=== PATIENT | female | born 1970 | race Caucasian/White ===

== ENCOUNTER 2018-05-04 20:54 | Observation (INO) | payer OTHER ==
--- NOTE | 2018-05-04 21:13 | PDOC ---
Rapid Medical Evaluation Chief Complaint: Blood Pressure Problem Time Seen by Provider: 05/04/18 21:06 Medical Evaluation: 05/04/18 21:07 You I have performed a brief in-person evaluation of this patient. The patient presents with a chief complaint of: problems left arm pain that has radiated from shoulder with intermittant CP, Pertinent physical exam findings: tearful and admits to nervousness. I have ordered the following: Ekg The patient will proceed to the ED for further evaluation.
[2018-05-04 21:14] VITALS: BMI 29.7
--- NOTE | 2018-05-04 21:49 | PDOC ---
History of Present Illness - General History Source: Patient Exam Limitations: No Limitations - History of Present Illness Initial Comments: 05/04/18 21:58 The patient is a 47 year old female, with a significant past medical history of hypertension and hypothyroidism, who presents to the emergency department with left arm pain for several days. The patient reports her pain is a sharp and radiates up her arm into her shoulder, neck, and upper back. She reports her pain is exacerbated with arm movement, and denies any heavy lifting or trauma. She reports associated intermittent chest pain, but denies any shortness of breath, diaphoresis, or palpitations. Patient reports she noted increased lower extremity swelling earlier today and reports a headache with blurry vision, but denies any dizziness or lightheadedness. Patient reports monitoring her bp at home and states it was in 150s/90s. Patient reports increased urinary frequency and slight brown discharge, but denies any dysuria or hematuria. Patient states her LMP was 04/03/18, but has not gotten her period this month. She reports intermittent nausea, but denies any sour taste in mouth, abdominal pain, vomiting, diarrhea, or constipation. She denies any recent travel or sick contacts. In the past, patient reports hip, knee, and shoulder pain, which typically resolved on their own, and states she has no history of rheumatologic conditions. Allergies: NKDA Past Surgical History: None reported Social History: Non smoker. No ETOH or recreational drug use. Family History: Mother(diabetes, hypertension, CHF) PCP: Dr. Muhammad <Genesis Jason - Last Filed: 05/04/18 22:13> <Nivia Shrap - Last Filed: 05/04/18 23:42> - General Chief Complaint: Blood Pressure Problem Stated Complaint: LT ARM PAIN Time Seen by Provider: 05/04/18 21:06 Past History <Genesis Jason - Last Filed: 05/04/18 22:13> - Past Medical History COPD: No - Suicide/Smoking/Psychosocial Hx Smoking History: Never smoked Hx Alcohol Use: No Drug/Substance Use Hx: No Substance Use Type: None <Nivia Sharp - Last Filed: 05/04/18 23:42> - Past Medical History Allergies/Adverse Reactions: Allergies Allergy/AdvReac Type Severity Reaction Status Date / Time No Known Allergies Allergy Verified 05/04/18 21:08 Home Medications: Ambulatory Orders Amlodipine Besylate [Norvasc -] 10 mg PO DAILY 05/04/18 Enalapril Maleate [Vasotec -] 10 mg PO DAILY 05/04/18 Review of Systems - Review of Systems Able to Perform ROS?: Yes Comments:: 05/04/18 21:58 GENERAL/CONSTITUTIONAL: No fever or chills. No weakness. HEAD, EYES, EARS, NOSE AND THROAT: +Blurry vision. No ear pain or discharge. No sore throat. GASTROINTESTINAL: +Nausea. No abdominal pain, vomiting, diarrhea or constipation. GENITOURINARY: +Frequency, brown vaginal discharge. No dysuria, hematuria or change in urination. CARDIOVASCULAR: +Chest pain. No shortness of breath. RESPIRATORY: No cough, wheezing, or hemoptysis. MUSCULOSKELETAL: +Left arm pain radiating to shoulder, neck, and upper back. + Joint pains. No joint or muscle swelling. SKIN: No rash NEUROLOGIC: +Headache. No vertigo, loss of consciousness, or change in strength/ sensation. ENDOCRINE: No increased thirst. No abnormal weight change. HEMATOLOGIC/LYMPHATIC: No anemia, easy bleeding, or history of blood clots. ALLERGIC/IMMUNOLOGIC: No hives or skin allergy. <Genesis Jason - Last Filed: 05/04/18 22:13> *Physical Exam - Vital Signs Last Vital Signs Temp Pulse Resp BP Pulse Ox 98.7 F 115 H 20 225/96 97 05/04/18 21:08 05/04/18 21:08 05/04/18 21:08 05/04/18 21:08 05/04/18 21:08 - Physical Exam Comments: 05/04/18 21:59 Constitutional: Awake, alert, oriented. No acute distress. Head: Normocephalic. Atraumatic Eyes: PERRL. EOMI. Conjunctivae are not pale. ENT: Mucous membranes are moist and intact. Posterior pharynx without exudates or erythema. Uvula midline. Neck: Supple. Full ROM. No lymphadenopathy. Cardiovascular: Tachycardic. Regular rhythm. S1, S2 regular. Distal pulses are 2+ and symmetric. Pulmonary/Chest: No evidence of respiratory distress. Clear to auscultation bilaterally No wheezing, rales or rhonchi. Abdominal: Soft and non-distended. There is no tenderness. No rebound, guarding or rigidity. No organomegaly. No palpable masses. Good bowel sounds. Back: Tender at left cervical/paraspinal region. No midline tenderness. No bony crepitus, step-offs, or deformities. No CVA tenderness. Musculoskeletal: Anterior left shoulder tenderness over the bicep tendon insertion of left arm, but otherwise full range of motion. No edema. No cyanosis. No clubbing. Full range of motion in all extremities. No calf tenderness. Radial/pedal pulses are intact and 2+ bilaterally Skin: Skin is warm and dry. No petechiae. No purpura. Neurological: Alert and oriented to person, place, and time. Cranial nerves II -XII are grossly intact. Normal speech. Strength is grossly symmetric. 5/5 muscle strength. No sensory deficits. Psychiatric: Good eye contact. Normal interaction, affect and behavior. <Genesis Jason - Last Filed: 05/04/18 22:13> - Vital Signs Last Vital Signs Temp Pulse Resp BP Pulse Ox 98.7 F 115 H 20 225/96 97 05/04/18 21:08 05/04/18 21:08 05/04/18 21:08 05/04/18 21:08 05/04/18 21:08 <Nivia Sharp - Last Filed: 05/04/18 23:42> Heart Score/ECG Review - ECG Intrepretation Comment:: 05/04/18 23:31 sinus tach at 101 w 1st degree av block, mild st depression with t wave inversion sv2-3, abnl ekg <Nivia Sharp - Last Filed: 05/04/18 23:42> ED Treatment Course - LABORATORY CBC & Chemistry Diagram: 05/04/18 22:01 05/04/18 22:01 <Genesis Jason - Last Filed: 05/04/18 22:13> - LABORATORY CBC & Chemistry Diagram: 05/04/18 22:01 05/04/18 22:01 - RADIOLOGY Radiology Studies Ordered: Category Date Time Status CHEST X-RAY PORTABLE* [RAD] Stat Radiology 05/04/18 21:46 Ordered <Nivia Sharp - Last Filed: 05/04/18 23:42> Medical Decision Making - Medical Decision Making 05/04/18 21:47 a/p: 47yo female with hx of HTN and Hypothyroid presents c/o intermittent L chest/arm pain, diffuse joint pain and elevated bp -intermittent episodes of cp with radiation down L arm x few days -no assoc sob -sometimes assoc nausea -fam hx of cad/htn/dm/chf -no v/d -head pressure -on synthroid -on norvasc and enalapril (noncompliant with enalapril) -will check labs, trop, ekg, cxr -given joint pain - will add esr/crp 05/04/18 23:38 pt states intermittent episodes of L upper chest pain that radiates to shoulder trop negative, but t wave inversions on ekg - will keep in obs and place consult to cards microblog sent to [facility] for obs 05/04/18 23:42 case discussed with [facility] - accepts pt to obs tele <Nivia Sharp - Last Filed: 05/04/18 23:42> *DC/Admit/Observation/Transfer - Attestations Scribe Attestion: 05/04/18 21:59 Documentation prepared by Genesis Jason, acting as nurses medical assistants phlebotomists for Nivia Sharp DO. <Genesis Jason - Last Filed: 05/04/18 22:13> - Discharge Dispostion Decision to Admit order: Yes - Attestations Physician Attestion: 05/04/18 23:39 I, Dr. Nivia Sharp DO, attest that this document has been prepared under my direction and personally reviewed by me in its entirety. I further attest, that it accurately reflects all work, treatment, procedures and medical decision -making performed by me. <Nivia Sharp - Last Filed: 05/04/18 23:42> Diagnosis at time of Disposition: Chest pain - Discharge Dispostion Condition at time of disposition: Fair - Referrals Referrals: Andrew Muhammad [Primary Care Provider] -
[2018-05-04 22:30] LABS: URINE APPEARANCE CLEAR; URINE BILIRUBIN NEGATIVE (<2.0 mg/dL); URINE COLOR STRAW; URINE GLUCOSE (UA) NEGATIVE (NEGATIVE); URINE KETONE NEGATIVE (NEGATIVE); URINE LEUK ESTERASE NEGATIVE (NEGATIVE); URINE NITRITE NEGATIVE (NEGATIVE); URINE PROTEIN NEGATIVE (NEGATIVE); URINE UROBILINOGEN NEGATIVE mg/dL (0.2-1.0)
[2018-05-04 22:32] LABS: EOS % 3.1 % (0-4.5); LYMPH % 25.3 % (8-40); MCHC 32.6 g/dl (32.0-36.0); MEAN CELL VOLUME 79.7 fl (80-96); MEAN PLT VOLUME 8.8 fl (7.5-11.1); MONO % 8.5 % (3.8-10.2); NEUT % 62.1 % (42.8-82.8); PLATELET COUNT 289 K/MM3 (134-434); RBC 5.02 M/mm3 (3.60-5.2); RDW 14.5 % (11.6-15.6); WHITE BLOOD COUNT 8.1 K/mm3 (4.0-10.0)
[2018-05-04 22:53] LABS: ALBUMIN 3.9 g/dl (3.4-5.0); ANION GAP 9 (8-16); BLOOD UREA NITROGEN 11 mg/dL (7-18); CALCIUM 8.8 mg/dL (8.5-10.1); CHLORIDE 102 mmol/L (98-107); CO2 28 mmol/L (21-32); GLUCOSE,RANDOM 104 mg/dL (74-106); POTASSIUM 3.7 mmol/L (3.5-5.1); SODIUM 139 mmol/L (136-145)
[2018-05-04 23:06] LABS: ALK PHOS 87 U/L (45-117); BILIRUBIN,TOTAL 0.3 mg/dL (0.2-1.0); CREATININE 0.8 mg/dL (0.55-1.02); SGOT/AST 14 U/L (15-37); SGPT/ALT 24 U/L (12-78); TOT PROT 8.2 g/dl (6.4-8.2)
[2018-05-04] MEDS ORDERED: ASPIRIN 81 MG CHEWABLE TABLETS PO ONE (23:32)
[2018-05-04] MEDS ORDERED: ASPIRIN 325 MG TABLET ONE (23:49)
--- NOTE | 2018-05-04 23:51 | PN ---
Teaching Attending Note Name of Resident: Andrea Vazquez ATTENDING PHYSICIAN STATEMENT I saw and evaluated the patient. I reviewed the resident's note and discussed the case with the resident. I agree with the resident's findings and plan as documented. SUBJECTIVE: Patient is a 47 year old woman past medical history of hypertension and hypothyroidism, who presents to the emergency department with left arm pain, shoulder pain and chest pain for three days. The patient reports her pain is a sharp and radiates up her arm into her shoulder, neck, and upper back. She reports her pain is exacerbated with arm movement, and denies any heavy lifting or trauma. She reports associated intermittent chest pain, but denies any shortness of breath, diaphoresis, or palpitations. Patient reports she noted increased lower extremity swelling earlier today and reports a headache with blurry vision, but denies any dizziness or lightheadedness. Patient reports increased urinary frequency and slight brown discharge, but denies any dysuria or hematuria. Patient states her LMP was 04/03/18, but has not gotten her period this month. She reports intermittent nausea, has history of frozen right shoulder, and left knee pain. OBJECTIVE: Alert and in no acute respiratory distress Vital Signs Period Temp Pulse Resp BP Sys/[place] Pulse Ox Last 24 Hr 98.7 F 92-115 18-20 149-225/81-96 97-98 HEENT: No Jaundice, eye redness or discharge, PERRLA, EOMI. Normocephalic, atraumatic. External ears are normal and hearing is grossly intact. No nasal discharge. Neck: Supple, nontender. No palpable adenopathy or thyromegaly. No JVD Chest: Good effort. Clear to auscultation and percussion. Heart: Regular. No S3, rub or murmur Abdomen: Not distended, soft, nontender and no HSM. No rebound or guarding. Normoactive bowel sounds. Ext: Peripheral pulses intact. Limited ROM of left shoulder; leg edema. Skin: Warm and dry. No petechiae, rash or ecchymosis. Neuro: Alert. Oriented x3. CN 2-12 grossly intact. Sensation grossly intact in all four extremities and DTR are symmetric. Home Medications Medication Instructions Recorded Amlodipine Besylate [Norvasc -] 10 mg PO DAILY 05/04/18 Enalapril Maleate [Vasotec -] 10 mg PO DAILY 05/04/18 Abnormal Lab Results 05/04/18 05/04/18 05/04/18 22:01 22:01 22:01 MCV 79.7 L ESR 58 H AST 14 L C-Reactive Protein 0.9 H ASSESSMENT AND PLAN: 1. Atypical chest pain - EKG shows nonspecific T wave changes with normal troponin. Will admit to Telemetry to rule out ACS, get ECHO and consult cardiology. 2. Shoulder pain and arm pain - Will get CT of her left shoulder and MRI of C spine to rule out cervical radiculopathy. Do serum test first. 3. Polyarticular joint pain - Will get MOOKIE and autoimmune disease panel. 4. Uncontrolled hypertension - Restart home medications and strive for normotension. 5. DVT prophylaxis - Heparin 5000u sq tid 6. Advance directives - Full code
--- NOTE | 2018-05-05 02:51 | HP ---
CHIEF COMPLAINT: Left arm, back neck and chest pain PCP: Dr. Muhammad HISTORY OF PRESENT ILLNESS: The patient is a 47 yo f w/ PMH HTN, Hypothyroidism who comes into the ED c/o a 1 week history left arm pain. The patient describes a sharp pain which originates in her left shoulder and radiates ti her left bicep as well as the left side of her chest, neck and back. The patient states that the pain get worse on movement of the arm and at night when resting. Pain alleviated by NSAIDs. Patient denies numbness, tingling, but does endorse weakness and "heaviness" in the affected limb. The patient has a history of right sided frozen shoulder, left sided knee pain for the last 5 months as well as b/l hip pain several years ago which has since resolved. This pain is associated with headache and feelings of a heavy head as well as b/l LE swelling and nausea. Patient states that her BP at home has been in the "150's over 90's" by wrist cuff. Patient was recently started on vasotec, but has not taken it in the the last 3 days because it "causes her shoulders to hurt worse" The patient is also complaining of increased urinary frequency without dysuria. Patient denies SOB, diaphoresis, palpitations, abdominal pain, changes in bowel habits. ER course was notable for: (1) normal labs, UA negative w/ normal specific gravity (2) ESR 58, CRP .9, troponin negative x1 (3) Upreg negative (4) EKG showing sinus tachy w/ t wave inversions in V2 and V as well as a 1st degree AV block Recent Travel: none PAST MEDICAL HISTORY: HTN diagnosed in 1991 while Hyperthyroidism diagnosed in 2001 s/p radioablation and resulting hypothyroidism PAST SURGICAL HISTORY: none Social History: Smoking: never smoker Alcohol: denies Drugs: denies Patient currently unemployed, lives at home w/ 3 children Family History: Mother w/ Hx DM, HTN and CHF Son with asthma Allergies No Known Allergies Allergy (Verified 05/04/18 21:08) HOME MEDICATIONS: Home Medications Medication Instructions Recorded Amlodipine Besylate [Norvasc -] 10 mg PO DAILY 05/04/18 Enalapril Maleate [Vasotec -] 10 mg PO DAILY 05/04/18 REVIEW OF SYSTEMS CONSTITUTIONAL: Absent: fever, chills, diaphoresis, generalized weakness, malaise, loss of appetite, weight change HEENT: Absent: rhinorrhea, nasal congestion, throat pain, throat swelling, difficulty swallowing, mouth swelling, ear pain, eye pain, visual changes CARDIOVASCULAR: Absent: syncope, palpitations, irregular heart rate, lightheadedness, peripheral edema RESPIRATORY: Absent: cough, shortness of breath, dyspnea with exertion, orthopnea, wheezing, stridor, hemoptysis GASTROINTESTINAL: Absent: abdominal pain, abdominal distension, vomiting, diarrhea, constipation, melena, hematochezia GENITOURINARY: Absent: dysuria, urgency, hesitancy, hematuria, flank pain, genital pain MUSCULOSKELETAL: Absent: myalgia, joint swelling, back pain SKIN: Absent: rash, itching, pallor HEMATOLOGIC/IMMUNOLOGIC: Absent: easy bleeding, easy bruising, lymphadenopathy, frequent infections ENDOCRINE: Absent: unexplained weight gain, unexplained weight loss, heat intolerance, cold intolerance NEUROLOGIC: Absent: focal paresthesias, dizziness, unsteady gait, seizure, mental status changes, bladder or bowel incontinence PSYCHIATRIC: Absent: anxiety, depression, suicidal or homicidal ideation, hallucinations. PHYSICAL EXAMINATION Vital Signs - 24 hr 05/04/18 05/04/18 05/04/18 21:08 22:00 22:04 Temperature 98.7 F Pulse Rate 115 H Pulse Rate [ 94 H Left Radial] Pulse Rate [ 92 H Right Radial] Respiratory 20 18 18 Rate Blood Pressure 225/96 Blood Pressure 151/84 [Left Arm] Blood Pressure 149/81 [Right Arm] O2 Sat by Pulse 97 98 98 Oximetry (%) 05/05/18 01:30 Temperature 98 F Pulse Rate 85 Pulse Rate [ Left Radial] Pulse Rate [ Right Radial] Respiratory 18 Rate Blood Pressure 158/94 Blood Pressure [Left Arm] Blood Pressure [Right Arm] O2 Sat by Pulse 98 Oximetry (%) GENERAL: Awake, alert, and fully oriented, in no acute distress. HEAD: Normal with no signs of trauma. EYES: Pupils equal, round and reactive to light, extraocular movements intact, sclera anicteric, conjunctiva clear. No lid lag. EARS, NOSE, THROAT: oropharynx clear without exudates. Moist mucous membranes. NECK: Normal range of motion, supple without lymphadenopathy, JVD, or masses. LUNGS: Breath sounds equal, clear to auscultation bilaterally. No wheezes, and no crackles. No accessory muscle use. HEART: Regular rate and rhythm, normal S1 and S2 without murmur, rub or gallop. ABDOMEN: Soft, nontender, not distended, normoactive bowel sounds, no guarding, no rebound, no masses. No hepatomegaly or splenomegaly. MUSCULOSKELETAL: Normal range of motion at all joints. No bony deformities or tenderness. No CVA tenderness. UPPER EXTREMITIES: 2+ pulses, warm, well-perfused. No cyanosis. No clubbing. No peripheral edema. LOWER EXTREMITIES: 2+ pulses, warm, well-perfused. No calf tenderness. 1+ peripheral edema. NEUROLOGICAL: Cranial nerves II-XII intact. Normal speech. Normal gait. Strength 5/5 in all four limbs. Sensation intact b/l PSYCHIATRIC: Cooperative. Good eye contact. Appropriate mood. Flat affect. SKIN: Warm, dry, normal turgor, no rashes or lesions noted, normal capillary refill. Laboratory Results - last 24 hr 05/04/18 05/04/18 05/04/18 22: 22:01 22:01 WBC 8.1 RBC 5.02 Hgb 13.0 Hct 40.0 MCV 79.7 L MCH 26.0 MCHC 32.6 RDW 14.5 Plt Count 289 MPV 8.8 Absolute Neuts (auto) 5.0 Neutrophils % 62.1 Lymphocytes % 25.3 Monocytes % 8.5 Eosinophils % 3.1 Basophils % 1.0 Nucleated RBC % 0 ESR 58 H Sodium 139 Potassium 3.7 Chloride 102 Carbon Dioxide 28 Anion Gap 9 BUN 11 Creatinine 0.8 Creat Clearance w eGFR > 60 Random Glucose 104 Calcium 8.8 Magnesium Total Bilirubin 0.3 AST 14 L ALT 24 Alkaline Phosphatase 87 Creatine Kinase 71 Troponin I < 0.02 C-Reactive Protein 0.9 H B-Natriuretic Peptide Total Protein 8.2 Albumin 3.9 TSH 3.54 Urine Color Urine Appearance Urine pH Ur Specific Novelty Urine Protein Urine Glucose (UA) Urine Ketones Urine Blood Urine Nitrite Urine Bilirubin Urine Urobilinogen Ur Leukocyte Esterase Urine HCG, Qual 05/04/18 05/04/18 05/04/18 22:01 22:01 22:01 WBC RBC Hgb Hct MCV MCH MCHC RDW Plt Count MPV Absolute Neuts (auto) Neutrophils % Lymphocytes % Monocytes % Eosinophils % Basophils % Nucleated RBC % ESR Sodium Potassium Chloride Carbon Dioxide Anion Gap BUN Creatinine Creat Clearance w eGFR Random Glucose Calcium Magnesium 2.2 Total Bilirubin AST ALT Alkaline Phosphatase Creatine Kinase Troponin I C-Reactive Protein B-Natriuretic Peptide Total Protein Albumin TSH Urine Color Straw Urine Appearance Clear Urine pH 8.0 Ur Specific Novelty 1.008 Urine Protein Negative Urine Glucose (UA) Negative Urine Ketones Negative Urine Blood Negative Urine Nitrite Negative Urine Bilirubin Negative Urine Urobilinogen Negative Ur Leukocyte Esterase Negative Urine HCG, Qual Negative 05/04/18 22:01 WBC RBC Hgb Hct MCV MCH MCHC RDW Plt Count MPV Absolute Neuts (auto) Neutrophils % Lymphocytes % Monocytes % Eosinophils % Basophils % Nucleated RBC % ESR Sodium Potassium Chloride Carbon Dioxide Anion Gap BUN Creatinine Creat Clearance w eGFR Random Glucose Calcium Magnesium Total Bilirubin AST ALT Alkaline Phosphatase Creatine Kinase Troponin I C-Reactive Protein B-Natriuretic Peptide 34.13 Total Protein Albumin TSH Urine Color Urine Appearance Urine pH Ur Specific Novelty Urine Protein Urine Glucose (UA) Urine Ketones Urine Blood Urine Nitrite Urine Bilirubin Urine Urobilinogen Ur Leukocyte Esterase Urine HCG, Qual ASSESSMENT/PLAN: The patient is a 47 yo f w/ pmh HTN, hypothyroidism who comes into the ED c/o a 1 week hx arm, chest, neck and back pain as well as nausea. #Arm neck and chest pain likely 2/2 musculoskeletal cause vs hypothroidism vs rheumatologic vs radiculopathy r/o ACS -trend trops -RPT EKG in AM -TSH WNL -Quant HCg to confirm lack of -Cspine MRI -CT LT shoulder r/o musculoskeletal cause -ESR, CRP elevated, will order MOOKIE in AM #increased urinary frequency -patient denies dysuria -UA not indicative of infection -will f/u UCx before treating #HTN -elevated by home measurement and mildly elevated in ED -c/w home norvasc 10mg in AM -will add losartan 25mg @ 1800 to achieve consistent bp control #Hypothyroidism -c/w home levothyroxine 100mcg #FEN -no fluids indicated -lytes WNL, replete PRN -sodium controlled diet #Prophy -patient ambulatory, obs; low risk for VTE #Dispo -Admit tele obs r/o ACS -Medications verified with patient only -case d/w Dr. Marin Visit type - Emergency Visit Emergency Visit: Yes ED Registration Date: 05/04/18 Care time: The patient presented to the Emergency Department on the above date and was hospitalized for further evaluation of their emergent condition. - New Patient This patient is new to me today: Yes Date on this admission: 05/05/18 - Critical Care Critical Care patient: No Hospitalist Screening - Colonoscopy Questionnaire Colonoscopy Questionnaire: Colonoscopy Questionnaire - Patient: 50 - 75 years old and never had a screening colonoscopy: No History of colon or rectal polyps, or CA: Unknown History of IBD, Crohn's disease or UC: Unknown History of abdominal radiation therapy as a child: Unknown - Relative: 1 with colon or rectal CA, or polyps at age 60 or younger: Unknown Colon or rectal CA diagnosed at age 45 or younger: Unknown Multiple relatives with colon or rectal CA: Unknown - Outcome: Screening Result: Negative Screen
[2018-05-05] MEDS ORDERED: LEVOTHYROXINE NA 100 MCG TABLET (FP) PO SCH (07:00)
[2018-05-05 07:40] LABS: BASO % 1.3 % (0-2.0); EOS % 3.6 % (0-4.5); HEMATOCRIT 37.6 % (32.4-45.2); HEMOGLOBIN 12.2 GM/dL (10.7-15.3); LYMPH % 25.5 % (8-40); MCH 25.9 pg (25.7-33.7); MCHC 32.4 g/dl (32.0-36.0); MEAN PLT VOLUME 8.5 fl (7.5-11.1); MONO % 8.6 % (3.8-10.2); PLATELET COUNT 250 K/MM3 (134-434); WHITE BLOOD COUNT 6.5 K/mm3 (4.0-10.0)
[2018-05-05 07:45] LABS: CHLORIDE 103 mmol/L (98-107); SODIUM 138 mmol/L (136-145)
[2018-05-05 07:56] LABS: ALBUMIN 3.4 g/dl (3.4-5.0); ALK PHOS 69 U/L (45-117); ANION GAP 9 (8-16); BILIRUBIN,TOTAL 0.4 mg/dL (0.2-1.0); BLOOD UREA NITROGEN 10 mg/dL (7-18); CALCIUM 8.5 mg/dL (8.5-10.1); CO2 26 mmol/L (21-32); CREATININE 0.6 mg/dL (0.55-1.02); GLUCOSE,RANDOM 97 mg/dL (74-106); SGOT/AST 11 U/L (15-37); SGPT/ALT 21 U/L (12-78); TOT PROT 7.1 g/dl (6.4-8.2)
--- NOTE | 2018-05-05 09:42 | EKG ---
Test Reason : Blood Pressure : / mmHG Vent. Rate : 101 BPM Atrial Rate : 101 BPM P-R Int : 224 ms QRS Dur : 084 ms QT Int : 328 ms P-R-T Axes : 072 033 035 degrees QTc Int : 425 ms SINUS TACHYCARDIA WITH 1ST DEGREE A-V BLOCK POSSIBLE LEFT ATRIAL ENLARGEMENT T WAVE ABNORMALITY, CONSIDER ANTERIOR ISCHEMIA ABNORMAL ECG NO PREVIOUS ECGS AVAILABLE Confirmed by OTILIO WINTER MD ([id number]) on 05/05/2018 9:42:34 AM Referred By: Confirmed By:OTILIO WINTER MD
[2018-05-05] MEDS ORDERED: amLODIPine BESYLATE 10 MG TABLET (FP) PO SCH (10:00)
--- NOTE | 2018-05-05 11:13 | CON.CARD ---
Cardiology Consult (text) - Consultation Consultation Note: cc: left arm pain, cp hpi: 47 f hx htn, hypothyroid here with left arm pain, cp. For past few weeks has sharp pain in left upper shoulder that radiates to neck, left chest, left arm. Worse with movement of left arm or when puts weight on left arm. No sob, angina, dizzy, loc, pnd, orthopnea. Mild le edema at times. No hx hrt dz. pmh: per hpi psh: nc social: no tob fam: no premature cad, scd ros: per hpi; no nvd, fever, hematuria, gib, dysuria, vision changes, wt loss meds: Home Medications Medication Instructions Recorded Amlodipine Besylate [Norvasc -] 10 mg PO DAILY 05/04/18 Enalapril Maleate [Vasotec -] 10 mg PO DAILY 05/04/18 Levothyroxine [Synthroid -] 100 mcg PO DAILY 05/05/18 pe: Vital Signs Period Temp Pulse Resp BP Sys/Christianson Pulse Ox Last 24 Hr 98 F-98.7 F 80-115 14-20 130-225/74-96 97-98 nad no jvd rrr s1s2 no mrg cta bl nl eff aaox3 no le e/c/c abd nt nd pos bs no jaundice diaphoresis pos dp pt no carotid bruits Laboratory Last Values WBC 6.5 K/mm3 (4.0-10.0) 05/05/18 06:00 RBC 4.70 M/mm3 (3.60-5.2) 05/05/18 06:00 Hgb 12.2 GM/dL (10.7-15.3) 05/05/18 06:00 Hct 37.6 % (32.4-45.2) 05/05/18 06:00 MCV 80.0 fl (80-96) 05/05/18 06:00 MCH 25.9 pg (25.7-33.7) 05/05/18 06:00 MCHC 32.4 g/dl (32.0-36.0) 05/05/18 06:00 RDW 14.0 % (11.6-15.6) 05/05/18 06:00 Plt Count 250 K/MM3 (134-434) 05/05/18 06:00 MPV 8.5 fl (7.5-11.1) 05/05/18 06:00 Absolute Neuts (auto) 4.0 # 05/05/18 06:00 Neutrophils % 61.0 % (42.8-82.8) 05/05/18 06:00 Lymphocytes % 25.5 % (8-40) 05/05/18 06:00 Monocytes % 8.6 % (3.8-10.2) 05/05/18 06:00 Eosinophils % 3.6 % (0-4.5) 05/05/18 06:00 Basophils % 1.3 % (0-2.0) 05/05/18 06:00 Nucleated RBC % 0 % (0-0) 05/05/18 06:00 ESR 58 mm/hr (0-20) H 05/04/18 22:01 Sodium 138 mmol/L (136-145) 05/05/18 06:00 Potassium 4.0 mmol/L (3.5-5.1) 05/05/18 06:00 Chloride 103 mmol/L (98-107) 05/05/18 06:00 Carbon Dioxide 26 mmol/L (21-32) 05/05/18 06:00 Anion Gap 9 (8-16) 05/05/18 06:00 BUN 10 mg/dL (7-18) 05/05/18 06:00 Creatinine 0.6 mg/dL (0.55-1.02) 05/05/18 06:00 Creat Clearance w eGFR > 60 (>60) 05/05/18 06:00 Random Glucose 97 mg/dL (74-106) 05/05/18 06:00 Calcium 8.5 mg/dL (8.5-10.1) 05/05/18 06:00 Magnesium 2.2 mg/dL (1.8-2.4) 05/04/18 22:01 Total Bilirubin 0.4 mg/dL (0.2-1.0) D 05/05/18 06:00 AST 11 U/L (15-37) L 05/05/18 06:00 ALT 21 U/L (12-78) 05/05/18 06:00 Alkaline Phosphatase 69 U/L (45-117) 05/05/18 06:00 Creatine Kinase 71 IU/L (26-192) 05/04/18 22:01 Troponin I < 0.02 ng/ml (0.00-0.05) 05/05/18 06:00 C-Reactive Protein 0.9 MG/DL (0.00-0.3) H 05/04/18 22:01 B-Natriuretic Peptide 34.13 pg/ml (5-125) 05/04/18 22:01 Total Protein 7.1 g/dl (6.4-8.2) 05/05/18 06:00 Albumin 3.4 g/dl (3.4-5.0) 05/05/18 06:00 TSH 3.54 uIU/ml (0.358-3.74) 05/04/18 22: Urine Color Straw 05/04/18 22: Urine Appearance Clear 05/04/18 22: Urine pH 8.0 (5.0-8.0) 05/04/18 22: Ur Specific [place] 1.008 (1.001-1.035) 05/04/18 22: Urine Protein Negative (NEGATIVE) 05/04/18 22: Urine Glucose (UA) Negative (NEGATIVE) 05/04/18 22: Urine Ketones Negative (NEGATIVE) 05/04/18 22: Urine Blood Negative (NEGATIVE) 05/04/18 22: Urine Nitrite Negative (NEGATIVE) 05/04/18 22: Urine Bilirubin Negative (<2.0 mg/dL) 05/04/18 22: Urine Urobilinogen Negative mg/dL (0.2-1.0) 05/04/18 22: Ur Leukocyte Esterase Negative (NEGATIVE) 05/04/18 22: Urine HCG, Qual Negative 05/04/18 22: ecg: sr, nl intervals, nonspec tw changes, no st changes tele: sr cxr: clear lungs a/p: 47 f hx htn, hypothyroid here with left arm pain, cp. arm pain, cp: -msk pain, does not seem cardiac -ce's neg. no signs acs. -plans per pmd for msk arm pain htn: -cont home meds le edema: -pt reports occasional le edema, none presently -will check echo if echo benign then ok for dc from cardiac pov
--- NOTE | 2018-05-05 15:06 | PN ---
Teaching Attending Note Name of Resident: Xin Garcia ATTENDING PHYSICIAN STATEMENT I saw and evaluated the patient. I reviewed the resident's note and discussed the case with the resident. I agree with the resident's findings and plan as documented. SUBJECTIVE: No fever or chills. L shoulder pain. no PC. had chest discomfort yesterday after a big meal from [employer] L shoulder pain shoots up to he neck and down to her arm OBJECTIVE: NA d Cv: RRr, no JVD Lungs: CTAB Abd: soft, NT< ND < NL BS Ext : no edema MS: L shoulder with limited range of motion , can abduct to 90 degrees only. no erythema or edema over shoulder , no TTP . L biceps and triceps 5/5 . sholder abduction 4/5 . 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 1- L shoulder pain: ? tendenopathy, vs rotator cuff tear ( supraspinatus ) . No evidence of cardiac etiology Ct no etiology MRI as ou tpt f/u with ortho 2- HTN urgency: cont home norvasc start losartan. not on any ACEI or ARB at home . was on lisinopril in past but she stopped because of joint pain ( self diagnosed ) dispo : dc home
[2018-05-05 16:12] VITALS: BP 122/68; PULSE 72; TEMP 98
[2018-05-05] MEDS ORDERED: LOSARTAN POTASSIUM 25 MG TABLET PO SCH (18:00)
--- NOTE | 2018-05-05 19:21 | DS ---
Physical Exam: SUBJECTIVE: Patient seen and examined at bedside. Resting comfortably this AM. States that she has continued LUE pain, however it has improved. Otherwise denies MAC, fever, chills, SOB, or changes in urinary or bowel function. OBJECTIVE: Vital Signs Period Temp Pulse Resp BP Sys/Christianson Pulse Ox Last 24 Hr 98 F-98.7 F 72-115 14-20 122-225/68-96 97-98 PHYSICAL EXAM GENERAL: Awake, alert, and fully oriented, in no acute distress. HEAD: Normal with no signs of trauma. EYES: Pupils equal, round and reactive to light, extraocular movements intact, sclera anicteric, conjunctiva clear. EARS, NOSE, THROAT: oropharynx clear without exudates. Moist mucous membranes. NECK: Normal range of motion, supple without lymphadenopathy LUNGS: Breath sounds equal, clear to auscultation bilaterally. No wheezes, and no crackles. No accessory muscle use. HEART: Regular rate and rhythm, normal S1 and S2 without murmur, rub or gallop. ABDOMEN: Soft, nontender, not distended, normoactive bowel sounds, no guarding, no rebound, no masses. No hepatomegaly or splenomegaly. MUSCULOSKELETAL: Normal range of motion at all joints. No bony deformities or tenderness. No CVA tenderness. LOWER EXTREMITIES: 2+ pt pulses, warm, well-perfused. No calf tenderness. 1+ peripheral edema. NEUROLOGICAL: Cranial nerves II-XII intact. Normal speech. Normal gait. motor strength 5/5 in upper and lower extremities. sensation intact. LABS Laboratory Results - last 24 hr 05/04/18 05/04/18 05/04/18 22:01 22:01 22:01 WBC 8.1 RBC 5.02 Hgb 13.0 Hct 40.0 MCV 79.7 L MCH 26.0 MCHC 32.6 RDW 14.5 Plt Count 289 MPV 8.8 Absolute Neuts (auto) 5.0 Neutrophils % 62.1 Lymphocytes % 25.3 Monocytes % 8.5 Eosinophils % 3.1 Basophils % 1.0 Nucleated RBC % 0 ESR 58 H Sodium 139 Potassium 3.7 Chloride 102 Carbon Dioxide 28 Anion Gap 9 BUN 11 Creatinine 0.8 Creat Clearance w eGFR > 60 Random Glucose 104 Hemoglobin A1c % Calcium 8.8 Magnesium Total Bilirubin 0.3 AST 14 L ALT 24 Alkaline Phosphatase 87 Creatine Kinase 71 Troponin I < 0.02 C-Reactive Protein 0.9 H B-Natriuretic Peptide Total Protein 8.2 Albumin 3.9 TSH 3.54 Urine Appearance Ur Leukocyte Esterase Additional testing 05/04/18 05/04/18 22:01 22:01 ESR 58 H C-Reactive Protein 0.9 H Troponins 05/04/18 05/05/18 22:01 06:00 Troponin I < 0.02 < 0.02 Imaging 05/04/18: CXR: no active pulmonary disease 05/04/18: CT L upper extremity w/o contrast: unremarkable; without fx or dislocation Micro 05/04/18: UCx - pending HOSPITAL COURSE: Date of Admission:05/04/18 Date of Discharge: 05/05/18 Admit diagnosis: L shoulder pain 47 y/o F w/ PMH HTN, Hypothyroidism who presented to the ED c/o a 1 week history left arm pain. The patient described a sharp pain which originated in her left shoulder and radiated to her L bicep, chest, neck and back. Stated that the pain worsened on movement and during the night when she would rest. Pain alleviated by NSAIDs. Patient denied numbness or tingling, but endorsed weakness and "heaviness" of the affected limb. Pt admitted for L shoulder pain R /o ACS. Patient was managed on the floor for the following: LUE, neck, chest pain likely 2/2 MSK. r/o rheumatologic involvement or ACS -Pt's troponins were negative x 2, r/o ACS. Her TSH was also found to be WNL, and CT of LUE was unremarkable. Did not show fracture or dislocation. She is given rx for MRI w/o contrast of LUE for further workup. She can do this as an outpatient. She will also follow up with ortho. Increased urinary frequency Pt's UA was unremarkable as well. A urine cx is pending, if result is positive, pt will be contacted with result. Resolved during patient's hospitalization. HTN Pt's BP was controlled with norvasc 10mg PO qd, and losartan 25mg PO qd was added to her regimen. She will continue this at home. Pt is not to take lisinopril upon her request as it exacerbated her symptoms. Hypothyroidism She is continued on levothyroxine 100mcg qd. Pt will follow up with cardio, ortho, and PCP on d/c. Discussed w/pt. Minutes to complete discharge: 44 Discharge Summary Reason For Visit: CHEST PAIN Condition: Improved - Instructions Diet, Activity, Other Instructions: You were in the hospital because you had left shoulder and arm pain. You had tests done for your heart, which showed that the problem was not related to your heart. You also had a CT scan done of your arm that did not show any fracture, or dislocation. Your visit -You were seen by the medicine and cardiology teams Medications -You may continue your home medications of norvasc and synthroid. -We have added the medication: Losartan 25mg daily. This is for blood pressure. Please continue to take this. -We have stopped your enalapril on your request. Testing -You will need an MRI without contrast of your Left arm when you are discharged. We will give you a prescription for this. Follow-up Please follow up with: -your primary care physician, Dr. Muhammad - in 1 week, to discuss your visit -an orthopedic doctor, Dr. Shoemaker - in 1 week -community development coordinator- Dr. Lu - 1 week If you develop shortness of breath, or chest pain, please go to the hospital. We hope you feel better soon. Referrals: Dionte Lu MD [Staff Physician] - 1 Week Markie Shoemaker MD [Staff Physician] - 1 Week Andrew Muhammad [Primary Care Provider] - 1 Week Disposition: HOME - Home Medications Comprehensive Discharge Medication List: Ambulatory Orders Amlodipine Besylate [Norvasc -] 10 mg PO DAILY 05/04/18 Levothyroxine [Synthroid -] 100 mcg PO DAILY 05/05/18 Losartan Potassium [Cozaar -] 25 mg PO DAILY #30 tablet 05/05/18 Miscellaneous Drug Not In Syst [Outpatient Lab Test] 1 each ASDIR #1 misc This patient is new to me today: Yes Date on this admission: 05/05/18 Emergency Visit: No Critical Care patient: No - Discharge Referral Referred to [facility] Med P.C.: No
--- NOTE | 2018-05-06 08:34 | EKG ---
Test Reason : Blood Pressure : / mmHG Vent. Rate : 060 BPM Atrial Rate : 060 BPM P-R Int : 266 ms QRS Dur : 088 ms QT Int : 402 ms P-R-T Axes : 056 021 004 degrees QTc Int : 402 ms SINUS RHYTHM WITH 1ST DEGREE A-V BLOCK OTHERWISE NORMAL ECG WHEN COMPARED WITH ECG OF 04-MAY-2018 21:20, VENT. RATE HAS DECREASED BY 41 BPM INVERTED T WAVES HAVE REPLACED NONSPECIFIC T WAVE ABNORMALITY IN INFERIOR LEADS T WAVE INVERSION NO LONGER EVIDENT IN ANTERIOR LEADS Confirmed by CORDELL PHELAN MD ([id number]) on 05/06/2018 8:33:55 AM Referred By: ELEONORA ROBERTS DR Confirmed By:CORDELL PHELAN MD
== END 2018-05-05 16:24 | disposition home or self-care (01) ==
LOC: JER 20:54 → JERBED 23:42 → UNDOADMOB 23:51 → JERBED 23:51 → J4W 05-05 01:29
PROVIDERS: ADMIT Internal Medicine; ATTEND Internal Medicine
DX: R07.89 Other chest pain (principal); M25.512 Pain in left shoulder; M79.602 Pain in left arm; M25.50 Pain in unspecified joint; I10 Essential (primary) hypertension; E03.9 Hypothyroidism, unspecified; R35.0 Frequency of micturition
CPT/HCPCS: 36415; 71045-TC-FY; 73200-TC-RT; 80053; 81003; 82550; 83036; 83735; 83880; 84443; 84484; 84703; 85025; 85651; 86140; 87086; 93005; 93010; 93306-TC; 99285-25; G0378

== ENCOUNTER 2019-04-03 15:30 | Emergency (ER) | payer OTHER | END 2019-04-03 16:24 | disposition home or self-care (01) | LOC: JERFT 15:30 ==

== ENCOUNTER 2019-07-26 14:39 | Emergency (ER) | payer OTHER ==
[2019-07-26 14:50] VITALS: TEMP 98.2; BMI 28.8
--- NOTE | 2019-07-26 14:50 | PDOC ---
Rapid Medical Evaluation Chief Complaint: Chest Pain Time Seen by Provider: 07/26/19 14:44 Medical Evaluation: Allergies Allergy/AdvReac Type Severity Reaction Status Date / Time No Known Allergies Allergy Verified 04/03/19 15:46 07/26/19 14:48 I have performed a brief in-person evaluation of this patient. The patient presents with a chief complaint of: midsternal chest pain and extremity x4 pain. Car trip to [place] 1 month ago. Pertinent physical exam findings: No focal findings. I have ordered the following: labs, urine, EKG The patient will proceed to the ED for further evaluation. Discharge Disposition - Diagnosis Chest pain - Referrals - Patient Instructions - Post Discharge Activity
--- NOTE | 2019-07-26 16:11 | PDOC ---
History of Present Illness - General Chief Complaint: Chest Pain Stated Complaint: CHEST PAIN Time Seen by Provider: 07/26/19 14:44 - History of Present Illness Initial Comments: 07/26/19 18:52 49yo F hx HTN, hypothyroidism, anemia on iron, and headaches presents from [facility] c/o intermittent midsternal nonexertional CP and palpitations x1wk, as well as oligomenorrhea/spotting and stress and urge incontinence x months, and b/l LE and UE pain/stiffness x years. CP and palpitations: intermittent, midsternal, nonradiating, nonexertional, nonpleuritic, non reproducible, mild pressure type, last <1im, occur 1-2x/day right before falling asleep or when watching TV, associated with palpitations/ heart fluttering feeling, worsened by stress or anxiety. Endorses car trip to [place] 1 month ago. Denies N/V, diaphoresis, SOB, numbness/tingling, hx CAD, FHx of early CVD, hemoptysis, hx DVT/PE, recent surgery, recent trauma, estrogen or OCP use, leg swelling, calf tenderness, malignancy. Last echo 2018 normal EF. Oligomenorrhea/spotting: x months, spotting associated with mild LLQ cramping. Denies increase in bleeding, vaginal discharge, vaginal odor, vaginal irritation , suprapubic pain, dizziness. Pt believes it is menopause. Incontinence: x months, when cough or laugh or when cant make it to bathroom in time, denies back pain, saddle anesthesia, bowel incontinence, weakness, or numbness/tingling. Extremity pain: x years, shooting pains in thighs, burning pain in lateral upper arms, stiffness in calves and knees, constant, worse when going down stairs or getting up from sitting, better with hot baths or raising legs or ibuprofen. Crusher Assembler Dr Lu. PCP Dr Hsu. Past History - Past Medical History Allergies/Adverse Reactions: Allergies Allergy/AdvReac Type Severity Reaction Status Date / Time No Known Allergies Allergy Verified 07/26/19 14:50 Home Medications: Ambulatory Orders Amlodipine Besylate [Norvasc -] 10 mg PO DAILY 05/04/18 Levothyroxine [Synthroid -] 100 mcg PO DAILY 06/15/18 Amox-Tr/K Cl [Augmentin - 875Mg Tablet] 1 tab PO BID 7 Days #14 tablet 04/03/19 Ibuprofen 800 mg PO Q8H PRN #20 tablet 04/03/19 Naproxen Sodium [Aleve] 220 mg PO BID 04/03/19 Anemia: Yes COPD: No HTN: Yes Thyroid Disease: Yes Other medical history: Migrane - Suicide/Smoking/Psychosocial Hx Smoking History: Never smoked Have you smoked in the past 12 months: No Information on smoking cessation initiated: No Hx Alcohol Use: No Drug/Substance Use Hx: No Substance Use Type: None Hx Substance Use Treatment: No Review of Systems - Review of Systems Comments:: 07/26/19 19:00 Constitutional: Positive for fatigue. Negative for chills, fever. HENT: Negative for sore throat, rhinorrhea, congestion. Eyes: Negative for visual disturbance. Respiratory: Negative for shortness of breath, cough, and wheezing. Cardiovascular: Positive for chest pain, palpitations. Negative for leg swelling. Gastrointestinal: Positive for constipation (due to iron). Negative for abdominal pain, blood in stool, diarrhea, nausea, and vomiting. Genitourinary: Positive for urinary incontinence. Negative for dysuria, flank pain, and hematuria. Musculoskeletal: Positive for b/l UE and LE pain. Negative for myalgias, back pain, and neck pain. Skin: Negative for rash. Neurological: Negative for light-headedness, dizziness, syncope, weakness, numbness and headaches. Psychiatric/Behavioral: Negative for behavioral problems and confusion. *Physical Exam - Vital Signs Last Vital Signs Temp Pulse Resp BP Pulse Ox 98.2 F 106 H 18 157/85 99 07/26/19 14:43 07/26/19 14:43 07/26/19 14:43 07/26/19 14:43 07/26/19 14:43 - Physical Exam Comments: 07/26/19 19:00 Gen: Alert, NAD, anxious-appearing. HEENT: PERRL, EOMI, MMM, NCAT. No conjunctival pallor. Sclera are non-icteric. CV: Regular rate and rhythm. No murmurs, rubs, or gallops. PULM: No resp distress. CTAB, no wheezes, rales, or rhonchi. ABD: soft, NT/ND, no rebound tenderness or guarding, no CVA tenderness. BACK: No TTP of c/t/l-spine. No step-offs or deformities. MSK: No bony deformities. 2+ pulses in all extremities. Full ROM of all extremities, no TTP of all extremities. NEURO: AAOx3. PERRL. CN 2-12 intact. 5/5 strength in all extremities. Sensation to light touch intact in all extremities. No pronator drift. No dysmetria. No dysdiadochokinesia. No abnormal nystagmus. No skew deviation. Normal gait. EXTREMITIES: No cyanosis. No clubbing. No edema. No calf tenderness. PSYCH: Normal mood and thought pattern. SKIN: Warm and dry. Normal capillary refill. No rashes. No jaundice. Heart Score/ECG Review - ECG Impressions Comment:: 07/26/19 18:58 Sinus rhythm with 1st degree AV block, 98bpm, VA interval 236ms, QTc 431ms, TWIs in lead III, no ST elevations or depressions. No significant changes when compared to 05/05/18. ED Treatment Course - LABORATORY CBC & Chemistry Diagram: 07/26/19 17:17 07/26/19 15:33 Medical Decision Making - Medical Decision Making 07/26/19 18:01 49yo F hx HTN, hypothyroidism, anemia on iron, and headaches presents from [facility] c/o intermittent midsternal nonexertional CP and palpitations x1wk, as well as oligomenorrhea/spotting and stress and urge incontinence x months, and b/l LE and UE pain/stiffness x years. Vital signs reviewed, tachycardic to 106, afebrile, benign physical exam , anxious-appearing. CP and palpitations: intermittent, midsternal, nonradiating, nonexertional, non reproducible, mild pressure type, last <1im, occur 1-2x/day right before falling asleep or when watching TV, associated with palpitations/heart fluttering feeling, worsened by stress or anxiety. Endorses car trip to [place] 1 month ago. Denies N/V, diaphoresis, SOB, numbness/tingling, hx CAD, FHx of early CVD, hemoptysis, hx DVT/PE, recent surgery, recent trauma, estrogen or OCP use, leg swelling, calf tenderness, malignancy. Last echo 2018 normal EF. Crusher Assembler Dr Lu. Most likely anxiety due to association with palpitations, nonexertional intermittent nature, and association with stress. However, must consider and r/o more emergent etiologies. Low concern for ACS/DE or arrhythmia due to lack of arrhythmia or signs of ischemia on EKG, trop neg, lack of association with nausea/numbness/diaphoresis/SOB, HEART score 2 (age, HTN, HLD) - r/o ACS/DE with troponin x2 and have pt follow-up tomorrow with Dr Lu for further evaluation. Low concern for pulmonary etiology due to non pleuritic nature of CP, lack of cough or SOB, and lungs CTAB, but r/o PNA, COPD exacerbation, and PTX with CXR and labs. Low concern for PE due to lack of SOB, but due to car trip, age, and tachycardia, Wells 1.5, Perc not negative - r/o low risk pt with D-dimer. Lack of tearing nature of chest pain, lack of back pain, lack of hemodynamic instability, and pulses equal bilaterally, dissection of very low concern - no further testing indicated. Also consider infectious etiologies, anemia, metabolic derangements, or - r/o with CBC, CMP, and UPreg. Oligomenorrhea/spotting: x months, spotting associated with mild LLQ cramping. Denies increase in bleeding, vaginal discharge, vaginal odor, vaginal irritation , suprapubic pain, dizziness. R/o anemia with CBC. Most likely perimenopause due to age and presentation. Also consider , thyroid pathology, PCOS, or other pelvic pathology - evaluate with UPreg and TSH/T4/T3. If negative, f/u with pts PCP/pet technologist. Incontinence: x months, when cough or laugh or when cant make it to bathroom in time, Most likely mixed (stress and urge) incontinence due to weak pelvic floor muscles. Also consider UTI, bladder stone, - UA/UC/Upreg. If negative, refer to urology. No back pain, TTP of c/t/l-spine, saddle anesthesia or numbness/tingling concerning for cauda equina or spinal etiology of incontinence. Extremity pain: x years, shooting pains in thighs, burning pain in lateral upper arms, stiffness in calves and knees, constant, worse when going down stairs or getting up from sitting, better with hot baths or raising legs or ibuprofen. Most likely musculoskeletal - f/u with PCP/ortho. Neurovascularly intact; no TTP, trauma, or deficits in ROM concerning for acute pathology. -EKG -CBC, CMP, Cardiac profile/trop x2, TSH/T3/T4, HbA1c, Mg, PT/INR, D-dimer, ferritin, lipid panel, lipase, UA/UC/Upreg -CXR -Dispo: likely d/c home w/close cardiology f/u and PCP f/u (possible ortho and uro f/u) pending w/u CXR reviewed: no acute pathology EKG reviewed: Sinus rhythm with 1st degree AV block, 98bpm, VA interval 236ms, QTc 431ms, TWIs in lead III, no ST elevations or depressions. No significant changes when compared to 05/05/18. Labs reviewed. Of note, trop neg, d-dimer neg, HLD present, preg neg, H/H 13.2/ 41.4. 07/26/19 18:[address] Almodovar. Pending 2nd trop. *DC/Admit/Observation/Transfer Diagnosis at time of Disposition: Chest pain - Discharge Dispostion Disposition: HOME Condition at time of disposition: Stable Decision to Admit order: No - Referrals Referrals: Cindy Godinez FNP [Primary Care Provider] - Dionte Lu MD [Staff Physician] - - Patient Instructions Printed Discharge Instructions: DI for Atypical Chest Pain Additional Instructions: You have been seen in the Emergency Department for chest pain and palpitations. Your EKG, chest X-ray, and labs, including Troponin (a heart enzyme), show no signs concerning for an emergent condition such as a heart attack or pneumonia. However, you do have risk factors for cardiac (heart) problems and need further evaluation. Follow-up with your truck railroad and bus motor mechanic Dr Lu tomorrow. Also follow-up with your primary care doctor within 1 week. Make sure to tell your primary care doctor about your leg and arm pain, your missed periods, and your urinary incontinence. Your primary care doctor may be able to help you with these issues or they may refer you to an Orthopedic (muscle/bone) doctor, Urologist, and/or Fish Culturist. Also make sure to tell your primary care doctor to review your labs. It appears that you don't have anemia based on our labs so you may be able to stop taking iron - make sure to discuss this with your primary care doctor. Return to the ED immediately if you experience chest pain, difficulty breathing , dizziness, or any other new or worsening symptom. - Post Discharge Activity
[2019-07-26 17:01] LABS: ALBUMIN 4.2 g/dl (3.4-5.0); ALK PHOS 92 U/L (45-117); ANION GAP 7 MMOL/L (8-16); BILIRUBIN,TOTAL 0.2 mg/dL (0.2-1); BLOOD UREA NITROGEN 12.8 mg/dL (7-18); CALCIUM 8.9 mg/dL (8.5-10.1); CHLORIDE 104 mmol/L (98-107); CO2 29 mmol/L (21-32); CREATININE 0.9 mg/dL (0.55-1.3); GLUCOSE,RANDOM 92 mg/dL (74-106); MAGNESIUM 2.5 mg/dL (1.8-2.4); SGOT/AST 17 U/L (15-37); SGPT/ALT 22 U/L (13-61); SODIUM 140 mmol/L (136-145); TOT PROT 8.6 g/dl (6.4-8.2)
[2019-07-26 17:35] LABS: BASO % 1.1 % (0-2.0); EOS % 2.5 % (0-4.5); HEMATOCRIT 41.4 % (32.4-45.2); HEMOGLOBIN 13.2 GM/dL (10.7-15.3); LYMPH % 23.4 % (8-40); MCH 25.3 pg (25.7-33.7); MEAN CELL VOLUME 79.2 fl (80-96); MEAN PLT VOLUME 8.1 fl (7.5-11.1); MONO % 6.7 % (3.8-10.2); NEUT % 66.3 % (42.8-82.8); PLATELET COUNT 308 K/MM3 (134-434); RBC 5.23 M/mm3 (3.60-5.2); RDW 14.9 % (11.6-15.6); WHITE BLOOD COUNT 7.7 K/mm3 (4.0-10.0)
--- NOTE | 2019-07-26 17:41 | PDOC ---
Documentation entered by Magalys Guerra SCRIBE, acting as scribe for Nivia Sharp DO. Nivia Sharp DO: This documentation has been prepared by the Charlie machado Xhesika, SCRIBE, under my direction and personally reviewed by me in its entirety. I confirm that the documentation accurately reflects all work, treatment, procedures, and medical decision making performed by me. Attending Attestation - Resident Resident Name: Kelsey Oneill - ED Attending Attestation I have performed the following: I have examined & evaluated the patient, The case was reviewed & discussed with the resident, I agree w/resident's findings & plan, Exceptions are as noted - HPI HPI: 07/26/19 18:30 The patient is a 49 year old female with a significant PMH of anemia, HTN, migraines, and hypothyroidism who presents to the emergency department with intermittent palpitations and mid sternal chest pressure. Patient states her symptoms are worsened at night while lying down. Patient states she usually has 1-2 episodes during the day. Patient states she stopped taking her losartan after her meds didn't get called in. Patient states she traveled to [place] by car 1 month again and noticed she is endorsing some leg cramping and b/l LE swelling. The patient denies chest pain, shortness of breath, headache and dizziness. Denies fever, chills, cough, nausea, vomiting, diarrhea and constipation. Denies dysuria, frequency, urgency and hematuria. Allergies: NKDA Cards: Dr. Navarro - Physicial Exam PE: 07/26/19 18:31 GENERAL: Awake, alert, and fully oriented, in no acute distress HEAD: No signs of trauma NECK: Normal ROM, supple, no lymphadenopathy, JVD, or masses LUNGS: Breath sounds equal, clear to auscultation bilaterally. No wheezes, and no crackles HEART: (+) tachy. Normal S1 and S2, no murmurs, rubs or gallops ABDOMEN: Soft, nontender, normoactive bowel sounds. No guarding, no rebound. No masses EXTREMITIES: Normal range of motion, no edema. No clubbing or cyanosis. No cords, erythema, or tenderness NEUROLOGICAL: Cranial nerves II through XII grossly intact. Normal speech, normal gait SKIN: Warm, Dry, normal turgor, no rashes or lesions noted. - Medical Decision Making 07/26/19 17:40 I, Dr. Nivia Sharp, DO, attest that this document has been prepared under my direction and personally reviewed by me in its entirety. I further attest, that it accurately reflects all work, treatment, procedures and medical decision -making performed by me. 07/26/19 18:32 a/p: 49yo female with hx of htn on norvasc with a week hx of intermittent episodes lasting 1min of palpitations and midsternal pressure -pt denies assoc sob, no nausea, no radiation, no diaphoresis -pt did take her bp meds today -pt denies cough -1m ago pt drove to [place] and has had b/l LE swelling intermittently since -pt states symptoms occur at night - lasts only a minute -will send labs, tsh, ekg, cxr, dimer -no swelling or calf cramping today -also feels she is perimenopausal - getting hot flashes -will send trop x 2 -dr. navarro is cards, will need halter as outpt 07/26/19 20:11 2 trop neg labs reviewed tsh normal pt denies symptoms at this time will call ramon tomorrow to arrange follow up she will need a halter as outpt pt stable for dc to home Heart Score/ECG Review - ECG Intrepretation Comment:: 07/26/19 17:40 sinus at 98, 1st degree av block, nl axis, t wave inversions III which are nonspecific, abnl ekg
[2019-07-26 17:52] LABS: INR 0.99 (0.83-1.09); PROTHROMBIN TIME (PATIENT) 11.7 SEC (9.7-13.0)
[2019-07-26 18:24] LABS: CHOLESTEROL 227 mg/dL (50-200); HDL CHOLESTEROL 45 mg/dL (40-60); LIPASE 119 U/L (73-393); TRIGLYCERIDES 229 mg/dL (0-150)
[2019-07-26 19:42] LABS: PH,URINE 6.5 (5.0-8.0); URINE APPEARANCE CLEAR; URINE BILIRUBIN NEGATIVE (NEGATIVE); URINE COLOR YELLOW; URINE GLUCOSE (UA) NEGATIVE (NEGATIVE); URINE KETONE NEGATIVE (NEGATIVE); URINE LEUK ESTERASE NEGATIVE (NEGATIVE); URINE NITRITE NEGATIVE (NEGATIVE); URINE PROTEIN NEGATIVE (NEGATIVE); URINE UROBILINOGEN 0.2 mg/dL (0.2-1.0)
[2019-07-26 19:45] LABS: HCG,QUALITATIVE URINE Negative
--- NOTE | 2019-07-26 20:09 | PDOC ---
*Physical Exam - Vital Signs Last Vital Signs Temp Pulse Resp BP Pulse Ox 98.2 F 106 H 18 157/85 99 07/26/19 14:43 07/26/19 14:43 07/26/19 14:43 07/26/19 14:43 07/26/19 14:43 - Physical Exam General Appearance: Yes: Nourished, Appropriately Dressed. No: Apparent Distress HEENT: positive: Normal ENT Inspection, Normal Voice Neck: positive: Supple Respiratory/Chest: positive: Lungs Clear Cardiovascular: positive: Regular Rhythm, Regular Rate Vascular Pulses: Dorsalis-Pedis (R): 2+, Doralis-Pedis (L): 2+ Gastrointestinal/Abdominal: positive: Soft Lymphatic: negative: Adenopathy Musculoskeletal: positive: Normal Inspection Extremity: positive: Normal Capillary Refill, Normal Inspection, Normal Range of Motion Integumentary: positive: Normal Color, Dry, Warm Neurologic: positive: Fully Oriented, Alert, Normal Mood/Affect ED Treatment Course - LABORATORY CBC & Chemistry Diagram: 07/26/19 17:17 07/26/19 15:33 - ADDITIONAL ORDERS Additional order review: Laboratory Results 07/26/19 07/26/19 07/26/19 19:15 19:15 17:17 PT with INR INR D-Dimer < 215 Sodium Potassium Chloride Carbon Dioxide Anion Gap BUN Creatinine Est GFR (CKD-EPI)AfAm Est GFR (CKD-EPI)NonAf Random Glucose Hemoglobin A1c % Calcium Magnesium Ferritin Total Bilirubin AST ALT Alkaline Phosphatase Creatine Kinase Troponin I < 0.02 Total Protein Albumin Triglycerides Cholesterol Total LDL Cholesterol HDL Cholesterol Lipase TSH Free T4 Beta HCG, Quant Urine Color Yellow Urine Appearance Clear Urine pH 6.5 Ur Specific [place] 1.006 L Urine Protein Negative Urine Glucose (UA) Negative Urine Ketones Negative Urine Blood Negative Urine Nitrite Negative Urine Bilirubin Negative Urine Urobilinogen 0.2 Ur Leukocyte Esterase Negative Urine HCG, Qual Negative 07/26/19 07/26/19 07/26/19 17:17 17:17 17:17 PT with INR 11.70 INR 0.99 D-Dimer Sodium Potassium Chloride Carbon Dioxide Anion Gap BUN Creatinine Est GFR (CKD-EPI)AfAm Est GFR (CKD-EPI)NonAf Random Glucose Hemoglobin A1c % Calcium Magnesium Ferritin Total Bilirubin AST ALT Alkaline Phosphatase Creatine Kinase Troponin I Total Protein Albumin Triglycerides Cholesterol Total LDL Cholesterol HDL Cholesterol Lipase TSH 0.72 Free T4 1.24 Beta HCG, Quant Urine Color Urine Appearance Urine pH Ur Specific [place] Urine Protein Urine Glucose (UA) Urine Ketones Urine Blood Urine Nitrite Urine Bilirubin Urine Urobilinogen Ur Leukocyte Esterase Urine HCG, Qual 07/26/19 07/26/19 15:33 15:26 PT with INR INR D-Dimer Sodium 140 Potassium 4.0 Chloride 104 Carbon Dioxide 29 Anion Gap 7 L BUN 12.8 Creatinine 0.9 Est GFR (CKD-EPI)AfAm 85.80 Est GFR (CKD-EPI)NonAf 74.03 Random Glucose 92 Hemoglobin A1c % 6.2 Calcium 8.9 Magnesium 2.5 H Ferritin 68.2 Total Bilirubin 0.2 AST 17 ALT 22 Alkaline Phosphatase 92 Creatine Kinase 75 Troponin I < 0.02 Total Protein 8.6 H Albumin 4.2 Triglycerides 229 H Cholesterol 227 H Total LDL Cholesterol 141 H HDL Cholesterol 45 Lipase 119 TSH Free T4 Beta HCG, Quant 2.5 Urine Color Urine Appearance Urine pH Ur Specific [place] Urine Protein Urine Glucose (UA) Urine Ketones Urine Blood Urine Nitrite Urine Bilirubin Urine Urobilinogen Ur Leukocyte Esterase Urine HCG, Qual 07/26/19 17:17 RBC 5.23 H MCV 79.2 L MCHC 32.0 RDW 14.9 MPV 8.1 Neutrophils % 66.3 Lymphocytes % 23.4 Monocytes % 6.7 Eosinophils % 2.5 Basophils % 1.1 Medical Decision Making - Medical Decision Making Patient signed out to me from Dr. Montesinos pending 2nd trop. - If 2nd trop negative patient can go home 2nd trop: Negative Disposition: Home with PCP and cardio FU *DC/Admit/Observation/Transfer Diagnosis at time of Disposition: Chest pain Qualifiers: Chest pain type: unspecified Qualified Code(s): R07.9 - Chest pain, unspecified - Discharge Dispostion Disposition: HOME Condition at time of disposition: Stable Decision to Admit order: No - Referrals Referrals: Cindy Godinez FNP [Primary Care Provider] - Dionte Lu MD [Staff Physician] - - Patient Instructions Printed Discharge Instructions: DI for Atypical Chest Pain Additional Instructions: You have been seen in the Emergency Department for chest pain and palpitations. Your EKG, chest X-ray, and labs, including Troponin (a heart enzyme), show no signs concerning for an emergent condition such as a heart attack or pneumonia. However, you do have risk factors for cardiac (heart) problems and need further evaluation. Follow-up with your call center trainer Dr Lu tomorrow. Also follow-up with your primary care doctor within 1 week. Make sure to tell your primary care doctor about your leg and arm pain, your missed periods, and your urinary incontinence. Your primary care doctor may be able to help you with these issues or they may refer you to an Orthopedic (muscle/bone) doctor, Urologist, and/or It Application Development Manager. Also make sure to tell your primary care doctor to review your labs. It appears that you don't have anemia based on our labs so you may be able to stop taking iron - make sure to discuss this with your primary care doctor. Return to the ED immediately if you experience chest pain, difficulty breathing , dizziness, or any other new or worsening symptom. Print Language: FIJIAN - Post Discharge Activity
[2019-07-26 20:14] VITALS: BP 141/76; PULSE 78
--- NOTE | 2019-07-27 14:11 | EKG ---
Test Reason : Blood Pressure : / mmHG Vent. Rate : 098 BPM Atrial Rate : 098 BPM P-R Int : 236 ms QRS Dur : 090 ms QT Int : 338 ms P-R-T Axes : 074 054 021 degrees QTc Int : 431 ms SINUS RHYTHM WITH 1ST DEGREE A-V BLOCK POSSIBLE LEFT ATRIAL ENLARGEMENT WHEN COMPARED WITH ECG OF 05-MAY-2018 10:40, VENT. RATE HAS INCREASED BY 38 BPM NON-SPECIFIC CHANGE IN ST SEGMENT IN ANTERIOR LEADS Confirmed by OTILIO WINTER MD ([id number]) on 07/27/2019 2:10:58 PM Referred By: Confirmed By:OTILIO WINTER MD
== END 2019-07-26 20:14 | disposition home or self-care (01) ==
LOC: JER 14:39
DX: R07.9 Chest pain, unspecified (principal); I10 Essential (primary) hypertension; E03.9 Hypothyroidism, unspecified; G43.909 Migraine, unspecified, not intractable, without status migrainosus; D64.9 Anemia, unspecified
CPT/HCPCS: 36415; 71046-TC-FY; 80053; 80061; 81003; 82550; 82728; 83036; 83690; 83721; 83735; 84439; 84443; 84481; 84484; 84702; 84703; 85025; 85379; 85610; 87086; 93005; 93010; 99283-25

== ENCOUNTER 2020-11-18 23:05 | Observation (INO) | payer OTHER ==
[2020-11-18 23:15] VITALS: BMI 29.2
[2020-11-19 00:28] LABS: BASO % 0.9 % (0-2.0); EOS % 2.6 % (0-4.5); HEMOGLOBIN 12.6 GM/dL (10.7-15.3); LYMPH % 21.8 % (8-40); MCH 25.6 pg (25.7-33.7); MCHC 32.3 g/dl (32.0-36.0); MEAN CELL VOLUME 79.4 fl (80-96); MONO % 7.4 % (3.8-10.2); NEUT % 67.3 % (42.8-82.8); RBC 4.91 M/mm3 (3.60-5.2); RDW 14.4 % (11.6-15.6); WHITE BLOOD COUNT 8.1 K/mm3 (4.0-10.0)
[2020-11-19 00:30] LABS: URINE APPEARANCE CLEAR; URINE BILIRUBIN NEGATIVE (NEGATIVE); URINE COLOR YELLOW; URINE GLUCOSE (UA) NEGATIVE (NEGATIVE); URINE KETONE NEGATIVE (NEGATIVE); URINE LEUK ESTERASE NEGATIVE (NEGATIVE); URINE NITRITE NEGATIVE (NEGATIVE); URINE PROTEIN NEGATIVE (NEGATIVE); URINE UROBILINOGEN 0.2 mg/dL (0.2-1.0)
[2020-11-19 00:32] LABS: HCG,QUALITATIVE URINE Negative
[2020-11-19 00:48] LABS: ALBUMIN 3.6 g/dl (3.4-5.0); BLOOD UREA NITROGEN 11.8 mg/dL (7-18)
[2020-11-19 00:52] LABS: BILIRUBIN,TOTAL 0.4 mg/dL (0.2-1); TOT PROT 8.3 g/dl (6.4-8.2)
[2020-11-19 02:14] LABS: MEAN PLT VOLUME 9.2 fl (7.5-11.1); PLATELET COUNT 278 K/MM3 (134-434)
[2020-11-19] MEDS ORDERED: KETOROLAC TROMETHAMINE 30 MG/1 ML VIAL IVPUSH ONE (04:02)
[2020-11-19] MEDS ORDERED: KETOROLAC TROMETHAMINE 30 MG/1 ML VIAL ONE (04:03)
[2020-11-19] MEDS ORDERED: DEXAMETHASONE SOD PHOSPHATE 10 MG/1 ML VIAL IVPUSH ONE (04:28)
[2020-11-19] MEDS ORDERED: DEXAMETHASONE SOD PHOSPHATE 10 MG/1 ML VIAL ONE (04:37)
[2020-11-19] MEDS ORDERED: amLODIPine BESYLATE 5 MG TABLET (FP) ONE (07:44)
[2020-11-19] MEDS ORDERED: ENOXAPARIN NA (PORCINE) 40 MG/0.4 ML DISP.SYRIN SQ ONE (07:44)
[2020-11-19 08:42] LABS: CALCIUM 8.8 mg/dL (8.5-10.1)
[2020-11-19 08:43] LABS: ALBUMIN 4.2 g/dl (3.4-5.0); BLOOD UREA NITROGEN 9.9 mg/dL (7-18); MAGNESIUM 2.3 mg/dL (1.8-2.4)
[2020-11-19 08:47] LABS: BILIRUBIN,TOTAL 0.3 mg/dL (0.2-1); CREATININE 0.9 mg/dL (0.55-1.3); TOT PROT 8.5 g/dl (6.4-8.2)
[2020-11-19] MEDS: LEVOTHYROXINE NA 100 MCG TABLET (FP) PO SCH (09:06)
[2020-11-19 09:22] LABS: BASO % 0.8 % (0-2.0); EOS % 0.3 % (0-4.5); HEMATOCRIT 41.2 % (32.4-45.2); HEMOGLOBIN 13.4 GM/dL (10.7-15.3); LYMPH % 13.5 % (8-40); MCH 25.8 pg (25.7-33.7); MCHC 32.6 g/dl (32.0-36.0); MEAN CELL VOLUME 79.2 fl (80-96); MEAN PLT VOLUME 8.3 fl (7.5-11.1); MONO % 1.8 % (3.8-10.2); NEUT % 83.6 % (42.8-82.8); PLATELET COUNT 306 K/MM3 (134-434); RBC 5.21 M/mm3 (3.60-5.2); RDW 14.9 % (11.6-15.6); WHITE BLOOD COUNT 9.8 K/mm3 (4.0-10.0)
[2020-11-19] MEDS ORDERED: amLODIPine BESYLATE 5 MG TABLET (FP) PO SCH (10:00)
[2020-11-19] MEDS ORDERED: KETOROLAC TROMETHAMINE 30 MG/1 ML VIAL IVPUSH PRN (10:00)
[2020-11-19] MEDS ORDERED: ENOXAPARIN NA (PORCINE) 40 MG/0.4 ML DISP.SYRIN SQ SCH (10:00)
[2020-11-19 12:48] VITALS: TEMP 97.9
[2020-11-19 17:49] VITALS: BP 135/74; PULSE 80
[2020-11-20] MEDS ORDERED: LEVOTHYROXINE NA 100 MCG TABLET (FP) PO SCH (05:37)
== END 2020-11-19 17:40 | disposition home or self-care (01) ==
LOC: JER 23:05 → JERBED 11-19 05:51
PROVIDERS: ADMIT Hospitalist
PROC: 3E033GC Introduction of Other Therapeutic Substance into Peripheral Vein, Percutaneous Approach (ICD-10-PCS; principal; 2020-11-19)
PROC: 3E0333Z Introduction of Anti-inflammatory into Peripheral Vein, Percutaneous Approach (ICD-10-PCS; 2020-11-19)
DX: M54.5 Low back pain (principal); M54.30 Sciatica, unspecified side; D25.9 Leiomyoma of uterus, unspecified; G43.909 Migraine, unspecified, not intractable, without status migrainosus; I10 Essential (primary) hypertension; E03.9 Hypothyroidism, unspecified; R29.90 Unspecified symptoms and signs involving the nervous system; M54.9 Dorsalgia, unspecified
CPT/HCPCS: 36415; 72131-TC; 72148-TC; 74176-TC; 80053; 81003; 83036; 83735; 84100; 84439; 84443; 84703; 85025; 87086; 93005; 93010; 96374; 96375; 99285-25; C9803; G0378; J1100; U0003